=== PATIENT | male | born 1995 | race Caucasian/White ===

== ENCOUNTER 2016-08-12 00:55 | Emergency (ER) | payer OTHER ==
--- NOTE | 2016-08-12 01:22 | ED Physician Documentation ---
Lower Extremity Problem - HISTORIAN Historian: patient, other (old records) - HPI Stated Complaint: bilateral knee pain Chief Complaint: Lower Extremity Problem Additional Information: Bilateral knee pops and pain x 10 months. 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 Was seen in this ER last October and given knee immobilizer for right knee; doesn't use it because it is uncomfortable. Takes occasional single dose of 440 mg Aleve or 600 mg ibuprofen. No injuries to knees. No primary. - ROS CONST: no problems - PAST HX Past History: none Surgeries/Procedures: none Allergies/Adverse Reactions: Allergies Allergy/AdvReac Type Severity Reaction Status Date / Time No Known Allergies Allergy Verified 08/12/16 01:13 Home Medications: Ambulatory Orders Medication Instructions Recorded NK [NK] 12/27/13 - SOCIAL HX Smoking History: non-smoker - FAMILY HX Family History: no significant history - VITAL SIGNS Vital Signs: Vital Signs Temp Pulse Resp BP Pulse Ox 79 16 140/78 98 08/12/16 01:00 08/12/16 01:00 08/12/16 01:00 08/12/16 01:00 - REVIEWED ASSESSMENTS Nursing Assessment Reviewed: Yes Vitals Reviewed: Yes Progress - Progress Progress: Bilateral knees, AP, lateral and sunrise views History: Knee pain Findings: The osseous, joint and soft tissue structures are normal. Impression: Normal. Electronically signed on Aug 12, 2016 2:07:03 AM PATIENT CLERICAL ASSISTANT by: Samir Mccurdy ED Results Lab/Radiology - Orders Orders: ED Orders Category Date Time Status BILAT KNEE 1 OR 2 VIEWS [RAD] Urgent Exams 08/12/16 Taken Lower Extremity Problem - EXAM General Appearance: no distress Hips: bilateral hip: no evidence of injury Legs: bilateral: normal inspection, no evidence of injury Knees: bilateral: normal inspection, normal range of motion, no evidence of injury, other (ant drawer sign. No post drawer. No variance), N/A: joint effusion, pain, soft tissue tenderness, swelling Ankle: bilateral: normal inspection, no evidence of injury Neuro/Tendon: normal sensation, normal motor functions, normal tendon functions , no evidence tendon injury EENT: eye inspection normal RESPIRATORY: no resp distress VASCULAR: no vascular compromise NEURO/PSYCH: CN's nml as tested, motor nml, sensation nml SKIN: warm/dry, normal color BACK: normal inspection (movements w/o pain) Discharge Clincal Impression: Knee pain, bilateral Qualifiers: Chronicity: chronic Qualified Code(s): M25.561 - Pain in right knee; M25.562 - Pain in left knee; G89.29 - Other chronic pain Additional Instructions: Make an appointment at the [facility] next soor to be seen in the next few days. Asl that provider for a referral to physical therapy to help you work on knee stability. The Clinic phone number is [phone]. Home Medications: Ambulatory Orders NK [NK] 12/27/13 Condition: Good Disposition: 01 HOME, SELF-CARE Decision to Admit: NO Decision Time: 02:12
[2016-08-12 02:25] VITALS: BP 149/71
--- NOTE | 2016-08-12 07:27 | Diagnostic Imaging Report ---
[facility] [id number] [facility].[address] [id number] Report Submission Date: Aug 12, 2016 2:07:03 AM ICE SCRAPER Patient Study Name: LING MARIN Date: Aug 12, 2016 1:40:52 AM ICE SCRAPER Modality Type: CR Gender: M Description: LOWER EXTREMITY : 89 Institution: [facility] Physician: ISABEL POWELL - MAGALYS Bilateral knees, AP, lateral and sunrise views History: Knee pain Findings: The osseous, joint and soft tissue structures are normal. Impression: Normal. Electronically signed on Aug 12, 2016 2:07:03 AM ICE SCRAPER by: Samir HA
== END 2016-08-12 02:19 | disposition home or self-care (01) ==
LOC: ED 00:55
DX: M25.561 Pain in right knee (principal); M25.562 Pain in left knee; G89.29 Other chronic pain
CPT/HCPCS: 99283

== ENCOUNTER 2019-03-08 14:22 | Emergency (ER) | payer BC, OTHER ==
[2019-03-08 14:39] VITALS: BP 128/89
--- NOTE | 2019-03-08 14:50 | ED Physician Documentation ---
General Adult - HPI Stated Complaint: feels funny Chief Complaint: General Adult Onset: hours Timing: still present Severity: moderate Further Comments: yes (Pt is a 23 yo male who "feels funny." Pt works at [employer] as a cook and recently has had alteration of his schedule so that he has recently had an irregular sleep pattern. 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, which can be stressful.) - ROS CONST: no problems EYES/ENT: none CVS/RESP: none GI/: none NEURO/PSYCH: other (difficulty concentrating) - PAST HX Past History: none Allergies/Adverse Reactions: Allergies Allergy/AdvReac Type Severity Reaction Status Date / Time No Known Allergies Allergy Verified 03/08/19 14:39 Home Medications: Ambulatory Orders Medication Instructions Recorded NK 12/27/13 - SOCIAL HX Smoking History: non-smoker - FAMILY HX Family History: No - VITAL SIGNS Vital Signs: Vital Signs Temp Pulse Resp BP Pulse Ox 98.7 F 80 19 128/89 98 03/08/19 14:34 03/08/19 14:34 03/08/19 14:34 03/08/19 14:34 03/08/19 14:34 - REVIEWED ASSESSMENTS Nursing Assessment Reviewed: Yes Vitals Reviewed: Yes Progress - Progress Progress: Pt is asymptomatic at time of presentation. labs including TSH and mono are wnl. Possible anxiety--pt says he's not exactly sure what anxiety is or if he might have it. Considered a small dose of Ativan while pt in ER to see effect, but pt denies sx at this time. Possible anxiety. Pt advised to consider meditation. Pt's mom practices this regularly. Follow up with primary provider to consider medication if problem persists or becomes worse. ED Results Lab/Radiology - Orders Orders: ED Orders Category Date Time Status UA [URINALYSIS] Routine Lab 03/08/19 Ordered Urine drug screen [DRUG SCREEN URINE MEDICAL ONLY] Lab 03/08/19 Ordered Routine General Adult Physical Exam - PHYSICAL EXAM GENERAL APPEARANCE: mild distress (mild anxiety) EENT: eye inspection normal, pharynx normal NECK: normal inspection, thyroid normal, supple RESPIRATORY: no resp distress, chest non-tender, breath sounds normal CVS: reg rate & rhythm, heart sounds normal BACK: normal inspection, no CVA tenderness SKIN: warm/dry, normal color EXTREMITIES: non-tender, normal range of motion, no evidence of injury, no edema NEURO: oriented X3, CN's nml as tested, motor nml, sensation nml, other (? anxiety) Discharge Clincal Impression: possible anxiety Referrals: Primary Doctor,No [Primary Care Provider] - Condition: Good Disposition: 01 HOME, SELF-CARE Decision to Admit: NO Decision Time: 16:13
[2019-03-08 15:09] LABS: BASOPHILS % 0.4 % (0.0-1.5); NEUTROPHILS # 2.2 # k/uL (1.4-7.7)
[2019-03-08 15:20] LABS: eGFR (Non-African) > 60
[2019-03-08 18:14] LABS: APPEARANCE,URINE CLEAR (CLEAR); COLOR,URINE YELLOW (YELLOW); OCCULT BLOOD,URINE NEGATIVE (NEGATIVE)
[2019-03-08 18:15] LABS: CANNABINOIDS NEGATIVE ng/mL (< 50); METHYLENEDIOXYMETHAMPHETAMINE NEGATIVE ng/mL (<500)
== END 2019-03-08 16:05 | disposition home or self-care (01) ==
LOC: ED 14:22
DX: Z00.00 Encounter for general adult medical examination without abnormal findings (principal)
CPT/HCPCS: 80053; 80377; 81002; 84443; 85025; 86308; 99281; 99282; G0481